=== PATIENT | male | born 1985 | race Caucasian/White ===

== ENCOUNTER 2019-01-15 16:00 | Inpatient (IN) | payer OTHER ==
[2019-01-17] MEDS ORDERED: Heparin 5,000 UNITS/ML VIAL ONE (06:15)
[2019-01-17] MEDS ORDERED: Fentanyl 100 MCG/2 ML VIAL ONE ×5 (06:36→10:20)
[2019-01-17] MEDS ORDERED: Lidocaine 2% Jelly 5 ML TUBE ONE (06:54)
[2019-01-17] MEDS ORDERED: Bupivacaine/Epinephrine 0.25% 30 ML VIAL ONE (07:07)
[2019-01-17] MEDS ORDERED: Scopolamine 1.5 mg/72 hour Patch ONE (07:10)
[2019-01-17] MEDS ORDERED: Midazolam HCl 2 mg/2 ml Vial ONE ×2 (07:18→07:19)
[2019-01-17] MEDS ORDERED: Ondansetron PF 4 MG/2 ML Vial IVP PRN ×2 (08:54→16:41)
[2019-01-17] MEDS ORDERED: Hydrocodone-Acetamin 15 ML UDCUP PO PRN ×2 (08:54→10:13)
[2019-01-17] MEDS ORDERED: Dextrose 50% Abboject 50 ML SYRINGE SLOW IVP PRN (08:54)
[2019-01-17] MEDS ORDERED: diphenhydrAMINE 50 MG/ML VIAL IVP PRN ×3 (08:54→16:41)
[2019-01-17] MEDS ORDERED: Dextrose 5% in Water 1,000 ML IV PRN (08:54)
[2019-01-17] MEDS ORDERED: hydrALAZINE 20 MG/ML VIAL SLOW IVP PRN (08:54)
[2019-01-17] MEDS ORDERED: Insulin Regular 300 UNITS/3 ML VIAL SC PRN (08:54)
[2019-01-17] MEDS ORDERED: Enoxaparin Sodium 40 MG/0.4 ML SYRINGE SC SCH (09:00)
[2019-01-17] MEDS ORDERED: fentaNYL Citrate/PF 2,000 MCG in Sodium Chloride 0.9% 60 ML IV PRN ×2 (09:12→16:43)
[2019-01-17] MEDS ORDERED: HYDROmorphone 2 MG/ML VIAL ONE (09:12)
[2019-01-17] MEDS ORDERED: diphenhydrAMINE 50 MG/ML VIAL IM PRN ×2 (09:12→16:41)
[2019-01-17] MEDS ORDERED: Promethazine HCl 25 MG/ML VIAL IM PRN ×3 (09:12→16:41)
[2019-01-17] MEDS ORDERED: Ondansetron HCl/PF 4 MG/2 ML Vial IVP PRN (09:12)
[2019-01-17] MEDS ORDERED: Naloxone HCl 0.4 mg/ml Vial IV PRN ×2 (09:12→16:41)
[2019-01-17] MEDS ORDERED: Promethazine HCl 25 MG/ML VIAL SLOW IVP PRN (09:12)
[2019-01-17] MEDS ORDERED: Zolpidem Tartrate 5 MG TAB PO PRN ×2 (09:12→16:41)
[2019-01-17] MEDS ORDERED: diphenhydrAMINE 25 MG CAP PO PRN ×2 (09:12→16:41)
[2019-01-17] MEDS ORDERED: Promethazine HCl 25 MG/ML VIAL ONE (09:13)
[2019-01-17] MEDS ORDERED: Communication Order-Pharmacy FS SCH ×2 (09:15→16:45)
[2019-01-17] MEDS ORDERED: D5 1/2 NS w/20 mEq KCL 1,000 ML ONE (09:27)
--- NOTE | 2019-01-17 10:39 | OP ---
DATE OF PROCEDURE: 01/17/2019 PREOPERATIVE DIAGNOSIS: Morbid obesity. PROCEDURES PERFORMED: Laparoscopic sleeve gastrectomy with esophagogastroscopy. INDICATIONS: This is a 33-year-old male, morbidly obese, who has attempted multiple weight loss programs without success. FINDINGS: A 38-[place] bougie used. DESCRIPTION OF PROCEDURE: After informed consent was obtained, the patient was taken to the operating room and given general endotracheal anesthesia, placed in supine position. Abdomen was prepped and draped in usual fashion. Local anesthesia infiltrated subcutaneously and deep. 12 mm incision was performed approximately 8 inches above the xiphoid, slightly to the left. Veress needle inserted. Drop test performed. Pneumoperitoneum was created to a volume of 2 L of carbon dioxide. Utilizing a bladeless 12 mm trocar and 0-degree laparoscope, direct visual entry into the abdominal cavity was performed. Pneumoperitoneum was created to a pressure of 15 mmHg and the patient placed in steep reverse Trendelenburg position. Rigo liver retractor inserted. Left lobe of the liver retracted superiorly. The pylorus identified and a 12 mm port placed on the right beneath it and two 12s placed left subcostal. The omentum was taken off the greater curvature 5 cm from the pylorus utilizing the LigaSure. Short gastrics divided with LigaSure. Left crura defined with the LigaSure. A 38-[place] bougie inserted and directed into the antrum. The linear 60-mm green load stapler was used to divide the antrum to the bougie, gold load along the bougie, and a series of blues through the angle of His. Intraoperative endoscopy was performed. The video endoscope inserted under direct vision, advanced into the sleeve, and the staple line inspected. There was no bleeding. Staple line then tested by inflating the new stomach with pressurized air and water. There was no air leak. Stomach decompressed. Scope removed. The remnants of the stomach removed from the abdomen through the left lateral port site. The fascia closed with 0 Vicryl suture and the GraNee needle. Trocars and retractors removed. Hemostasis assured. Skin closed with interrupted 4-0 Rapide. Dermabond applied. The patient tolerated the procedure well, transferred to Recovery in good condition. Sponge and needle count verified correct x2. Job ID: [id number]
[2019-01-17] MEDS: Pantoprazole 40 MG VIAL IVP SCH (11:09)
[2019-01-17 12:32] VITALS: BMI 41.7
[2019-01-17] MEDS: Ondansetron PF 4 MG/2 ML Vial IVP PRN ×2 (12:45→20:26)
[2019-01-17] MEDS ORDERED: Rocuronium Bromide 10 MG/ML (10ML VIAL) ONE (13:44)
[2019-01-17] MEDS ORDERED: Lidocaine 1% PF 5 ML VIAL ONE (13:44)
[2019-01-17] MEDS ORDERED: Glycopyrrolate 0.2 MG/ML 5 ML SYRINGE ONE (13:44)
[2019-01-17] MEDS ORDERED: Ondansetron PF 4 MG/2 ML Vial ONE (13:44)
[2019-01-17] MEDS ORDERED: PROPOFOL 200 MG/20 ML VIAL ONE (13:44)
[2019-01-17] MEDS: CEFAZOLIN 2 GM in Premix Bag 1 BAG IVPB SCH ×2 (14:14→23:28)
[2019-01-17] MEDS: Promethazine HCl 25 MG/ML VIAL IM PRN ×2 (14:55→23:34)
[2019-01-17] MEDS ORDERED: HYDROmorphone 10 mg/100 ml CADD IVPB PRN (16:41)
[2019-01-17] MEDS: D5 1/2 NS w/20 mEq KCL 1,000 ML IV SCH ×2 (17:32→18:06)
[2019-01-17] MEDS ORDERED: Sodium Chloride 0.9% 500 ML IVPB SCH (18:00)
[2019-01-17] MEDS ORDERED: Metoclopramide HCl 10 MG/2 ML VIAL IVP PRN (18:01)
[2019-01-17] MEDS: Lorazepam 2 MG/ML VIAL SLOW IVP PRN ×2 (18:10→20:38)
[2019-01-18] MEDS: D5 1/2 NS w/20 mEq KCL 1,000 ML IV SCH ×2 (02:42→09:01)
[2019-01-18] MEDS: Ondansetron PF 4 MG/2 ML Vial IVP PRN (04:05)
[2019-01-18 05:22] LABS: #Eosinphils 0.1 thou/uL (0.0-0.7); #Lymphocytes 2.2 thou/uL (1.20-3.40); #Monocytes 1.9 thou/uL (0.11-0.59); #Neutrophils 10.3 thou/uL (1.40-6.50); %Basophils 0.3 % (0.0-1.0); %Eosinophils 0.4 % (0.0-10.0); %Lymphocytes 15.2 % (21.0-51.0); %Monocytes 13.3 % (0.0-10.0); %Neutrophils 70.8 % (42.0-75.0); Hemoglobin 16.1 g/dL (14.0-18.0); Mean Corpuscular Hemoglobin 31.5 pg (27.0-31.0); Mean Corpuscular Volume 92.6 fL (78.0-98.0); Mean Platelet Volume 6.9 fL (7.4-10.4); Platelet Count 317 thou/uL (130-400); Red Blood Cell (RBC) Count 5.12 mill/uL (4.70-6.10); White Blood Cell (WBC) Count 14.5 thou/uL (4.8-10.8)
[2019-01-18 05:40] LABS: Anion Gap 12 mmol/L (10-20); BUN (Urea Nitrogen) 7 mg/dL (8.9-20.6); Calc. Creatinine Clearance 247 mL/min (70-130); Calcium 8.9 mg/dL (7.8-10.44); Carbon Dioxide 24 mmol/L (22-29); Chloride 104 mmol/L (98-107); Estimated GFR-MDRD Greater than 90; Glucose 126 mg/dL (70-105); Potassium 3.8 mmol/L (3.5-5.1); Sodium 136 mmol/L (136-145)
[2019-01-18 08:04] VITALS: BP 161/81; TEMP 98.7
[2019-01-18] MEDS: Pantoprazole 40 MG VIAL IVP SCH (08:56)
[2019-01-18] MEDS ORDERED: Enoxaparin Sodium 40 MG/0.4 ML SYRINGE SC SCH (09:00)
[2019-01-18] MEDS ORDERED: GASTROGRAFIN 30 ML BOT ONE (09:54)
--- NOTE | 2019-01-18 10:04 | RAD ---
FIFTEEN ML UPPER GI SERIES: DATE: 01/18/2019. HISTORY: Patient with gastric sleeve. DOSE: One minute of fluoroscopy and DaP of 127 uGy*^cm2. Gastrografin was given. The esophagus is unremarkable. The gastroesophageal junction is unremarkabl e. The gastric sleeve has normally enveloped the gastric body. No evidence of leak seen. Contrast passes from the proximal gastric region into the antrum through the sleeve. It also passes distally. IMPRESSION: Gastric sleeve is in god position with no evidence of a leak seen. Contrast does pass through the ne wly placed sleeve. POS: LEEANN
--- NOTE | 2019-01-19 12:54 | DIS ---
DATE OF ADMISSION: 01/17/2019 DATE OF DISCHARGE: 01/18/2019 DISCHARGE DIAGNOSIS: Morbid obesity. PROCEDURES DURING ADMISSION: Laparoscopic sleeve gastrectomy, intraoperative esophagogastroscopy, postoperative Gastrografin swallow. HOSPITAL COURSE: The patient was admitted, taken to the operating room, and underwent sleeve gastrectomy. Postoperatively, he has done well. He is tolerating liquids well. He was discharged home on hydrocodone and Zofran. He will follow up with me in 2 weeks. Job ID: [id number]
== END 2019-01-18 11:32 | disposition home or self-care (01) | DRG 621 ==
LOC: SURG A 01-17 06:06
PROVIDERS: ADMIT Surgery; ATTEND Surgery
PROC: 0DB64Z3 Excision of Stomach, Percutaneous Endoscopic Approach, Vertical (ICD-10-PCS; principal; 2019-01-17)
PROC: 0DJ08ZZ Inspection of Upper Intestinal Tract, Via Natural or Artificial Opening Endoscopic (ICD-10-PCS; 2019-01-17)
DX: E66.01 Morbid (severe) obesity due to excess calories (principal); Z68.41 Body mass index [BMI] 40.0-44.9, adult; K21.9 Gastro-esophageal reflux disease without esophagitis; G47.30 Sleep apnea, unspecified; Z79.899 Other long term (current) drug therapy
CPT/HCPCS: 36415; 74241; 80048; 85025; 88307; 88312; 94760; C9113; J1170; J1200; J1644; J1650; J2001; J2060; J2250; J2405; J2550; J2704; J2765; J3010; J3490; J7050; Q9963